=== PATIENT | male | born 1960 | race Hispanic/Latino ===

== ENCOUNTER 2016-06-14 23:53 | Emergency (ER) | payer OTHER ==
[~2016-06-14] VITALS: Ht 170.2 cm; Wt 95.5 kg
[~2016-06-14 23:53] MED LIST: NOMED
[2016-06-15 00:02] VITALS: BP 157/78; PULSE 79; RESP 16; O2SAT 96
[2016-06-15 00:42] LABS: BASOPHILS % (AUTO) 0.1 % (0-3); EOSINOPHILS % (AUTO) 3.6 % (0-5); MONOCYTES % (AUTO) 8.1 % (4-12); Mean Corpuscular Hemoglobin 31.1 pg (27.0-35.0); Mean Corpuscular Volume 87.2 fL (81-100); NEUTROPHILS % (AUTO) 43.9 % (40-74); Platelet Count 202 bil/L (150-400)
[2016-06-15 01:27] LABS: TROPONIN T 0.01 ug/L (0.0-0.011)
--- NOTE | 2016-06-15 01:43 | ED.REPORT ---
HPI-Chest Pain 40 and Over Date of Service Jun 15, 2016 ED Provider: Misha Barber MD The patient is a 56 year old male w/ a hx of DM who presents to the ED due to chest pain onset 8 hours ago. Pt came home from work and began to feel a tightness in his chest like "someone was squeezing." Associated symptoms include tingling and numbness in his left arm and left leg. He denies diaphoresis, nausea, and SOB. He was recently put on metformin. He has an appointment with his PCP, Dr. Martines, tomorrow for blood work. He is a former smoker. Pt's father was diabetic and had heart problems. Nursing Notes Stated Complaint: CHEST PAIN Chief Complaint: Chest Pain Allergies: Coded Allergies: No Known Allergies (Unverified , 04/01/14) Miscellaneous Medications No Historical Medication (No Historical Medication) Ea General Time Seen by MD: 01:41 Chief Complaint Chest pain Hx Obtained From: Patient Arrived By: Walk-in Sudden in Onset?: Yes Symptom Duration: Since onset Location: : Chest left Radiation: : Shoulder left Severity: Current: Mild Severity: Maximum: Moderate Recent Healthcare: No recent doctor visit, No recent hospitalization Similar Sx Previous: No Past Medical History Past Medical History Cholelithiasis Past Surgical History Appendectomy Family History Father had quadruple bypass at age 73 Smoking History Former Smoker Social History Alcohol Use: Denies alcohol use Drug Use: Denies drug use Other Social History: Local resident Occupation [employer] [employer] Ambulatory Status Independent Review of Systems Respiratory: Denies: Shortness of breath Cardiovascular: Reports: Chest pain GI: Denies: Nausea Skin: Denies Diaphoresis Neurologic: Reports: Numbness (left hand) Complete sys rev & neg: except as marked. Physical Exam Physical Exam Notes: Initial Vital Signs Vital Signs (First) Date Time Temp Pulse Resp B/P Pulse Ox O2 Delivery O2 Flow Rate FiO2 06/15/16 00:02 36.8 79 16 157/78 96 Room Air Initial VS: Reviewed Head / Eyes: Atraumatic, Normocephalic, PERRL ENT: Mucous membranes moist, Conjunctiva normal Extremities: Vascular intact, No swelling Skin: Warm, Dry Psychiatric: Mood/affect normal, Behavior normal General/Constitutional: Awake, Alert, Cooperative Respiratory / Chest: Atraumatic, Breath sounds NL, Breath sounds = bilat, No rales, No rhonchi, No wheezing Cardiovascular: Heart rate NL, Regular rhythm, Heart sounds NL, No gallop, No murmurs, No rubs Abdomen: Atraumatic, Soft, Non-tender, BS normoactive Interpretation & Diagnostics Lab Results Interpretation Result Diagram: 06/15/16 0019 06/15/16 0053 Test 06/15/16 00:19 06/15/16 00:53 06/15/16 03:00 White Blood Count 8.6th/mm3 (3.8-10.1) Red Blood Count 5.01mil/mm3 (4.40-5.80) Hemoglobin 15.6g/dL (13.8-17.2) Hematocrit 43.7% (41.0-50.0) Mean Corpuscular Volume 87.2fL (81-100) Mean Corpuscular Hemoglobin 31.1pg (27.0-35.0) Mean Corpuscular Hemoglobin Concent 35.7% (32.0-37.0) Red Cell Distribution Width 12.5% (12.3-15.4) Platelet Count 202bil/L (150-400) Neutrophils (%) (Auto) 43.9% (40-74) Lymphocytes (%) (Auto) 43.8% (14-46) Monocytes (%) (Auto) 8.1% (4-12) Eosinophils (%) (Auto) 3.6% (0-5) Basophils (%) (Auto) 0.1% (0-3) Hold Purple Top Tube Received (Received) Hold Blue Top Tube Received (Received) Hold Red Top Tube Received (Received) Hold Casco Top Tube Received (Received) Hold Simmons Top Tube Received (Received) Sodium Level 136mEq/L (134-144) Potassium Level 4.1mEq/L (3.5-5.2) Chloride Level 96mEq/L (97-108) Carbon Dioxide Level 22mmol/L (18-29) Blood Urea Nitrogen 25mg/dL (6-24) Creatinine 0.85mg/dL (0.76-1.27) Estimat Glomerular Filtration Rate 98mL/min (>59) Glucose Level 346mg/dL (60-99) Calcium Level 9.0mg/dL (8.5-10.1) Magnesium Level 2.0mg/dL (1.6-2.6) Total Bilirubin 0.5mg/dL (0.0-1.2) Aspartate Amino Transf (AST/SGOT) 30U/L (0-50) Alanine Aminotransferase (ALT/SGPT) 43U/L (0-44) Alkaline Phosphatase 64U/L (25-150) Total Protein 6.8g/dL (6.4-8.4) Albumin 3.8g/dL (3.4-5.0) Troponin T 0.010ug/L (0.0-0.011) ECG Interpretation Time: 01:29 Interpreted by: ED physician Normal ECG Interpretation: Normal ECG w/ rate of... (76), Normal sinus rhythm X-Ray Chest Interpretation Chest Xray Interpretation: IMPRESSION: no acute findings View: Portable Interpretation / Wet Read by: Wet read ED physician Re-Eval/Medical Decision Time of Eval: 02:30 Patient Status: Mild relief Re-Evaluation/Progress Note: Pt rechecked. Pain is slightly improved. Still waiting on x-ray results. Counseled Regarding: Diagnosis, Lab results, Need for follow-up, When/why to return to ED Discharge & Departure Disposition: Home Discharge Condition All VS Reviewed: Yes Condition: Stable Additional Instructions: Emergency Department evaluation included interview, examination, labs, chest x- ray, and ECG. There is no emergent cause for your symptoms. Take Ibuprofen as needed for pain. Follow up with your primary care for further care. Return to the Emergency Department for any new or worsening symptoms including shortness of breath, increased chest pain, and sweating. I hope you feel better soon! Referrals: Lionel Montenegro MD (PCP) [place] Attestation Portion of this note were transcribed by Catherine Argueta. I, Dr. Barber, personally performed the history, physical exam, and medical decision-making: I reviewed and confirmed the accuracy for the information in the transcribed note. Signed by: paul Adkins, 06/15/16 0300 copies to: Lionel Montenegro MD, Donald L MD Jun 15, 2016 01:43 Catherine Argueta Jun 15, 2016 02:00
[2016-06-15 04:15] VITALS: BP 135/76; PULSE 72; RESP 17; O2SAT 97
--- NOTE | 2016-06-15 08:35 | DRSVH ---
PROCEDURE: X-RAY CHEST ONE VIEW, PORTABLE ([id number]) INDICATIONS: CHEST PAIN TECHNIQUE: One view of the chest was acquired. COMPARISON: [facility], , CHEST 1VW (PORTABLE), 04/01/2014, 19:54. FINDINGS: Surgical changes and devices: None. Lungs and pleura: No pleural effusions or pneumothorax. Lungs are clear. Mediastinum: Mediastinal contours appear normal. Heart size is normal. Bones and chest wall: No suspicious bony lesions. Overlying soft tissues appear unremarkable. IMPRESSION: No acute cardiopulmonary disease. Dictated by: Jeancarlos Irvin [facility] Interpreted: Capri Chavis MD on 06/15/2016 at 8:34 Transcribed by: TEE on 06/15/2016 at 8:35 Approved by: Capri Chavis MD, PhD on 06/15/2016 at 17:02
== END 2016-06-15 04:16 | disposition home or self-care (01) ==
LOC: SED 23:53
DX: R07.9 Chest pain, unspecified (principal); E11.9 Type 2 diabetes mellitus without complications; Z87.891 Personal history of nicotine dependence